=== PATIENT | male | born 1950 | race Caucasian/White ===

== ENCOUNTER 2019-03-02 05:25 | Outpatient (CLI) | payer MEDICARE ==
[2019-03-02 10:51] LABS: #Basophils 0.1 thou/uL (0.0-0.2); #Eosinphils 0.3 thou/uL (0.0-0.7); #Lymphocytes 2.2 thou/uL (1.20-3.40); #Monocytes 1.1 thou/uL (0.11-0.59); #Neutrophils 6.4 thou/uL (1.40-6.50); %Basophils 0.7 % (0.0-1.0); %Eosinophils 3.3 % (0.0-10.0); %Monocytes 11.1 % (0.0-10.0); %Neutrophils 62.9 % (42.0-75.0); Hemoglobin 14.3 g/dL (14.0-18.0); Mean Corpuscular HGB CONC 34.4 g/dL (32.0-36.0); Mean Corpuscular Hemoglobin 32.5 pg (27.0-31.0); Mean Corpuscular Volume 94.6 fL (78.0-98.0); Mean Platelet Volume 7.6 fL (7.4-10.4); Platelet Count 260 thou/uL (130-400); RBC Distribution Width 12.1 % (11.5-14.5); Red Blood Cell (RBC) Count 4.39 mill/uL (4.70-6.10); White Blood Cell (WBC) Count 10.1 thou/uL (4.8-10.8)
[2019-03-02 11:20] LABS: Anion Gap 15 mmol/L (10-20); BUN (Urea Nitrogen) 35 mg/dL (8.4-25.7); Calc. Creatinine Clearance 0 mL/min (70-130); Calcium 9.6 mg/dL (7.8-10.44); Carbon Dioxide 23 mmol/L (23-31); Chloride 101 mmol/L (98-107); Estimated GFR-MDRD 57; Glucose 177 mg/dL (80-115); Potassium 4.8 mmol/L (3.5-5.1); Sodium 134 mmol/L (136-145)
--- NOTE | 2019-03-06 22:41 | EKG ---
Test Reason : Blood Pressure : / mmHG Vent. Rate : 096 BPM Atrial Rate : 096 BPM P-R Int : 192 ms QRS Dur : 076 ms QT Int : 336 ms P-R-T Axes : 068 -17 054 degrees QTc Int : 424 ms Normal sinus rhythm Low voltage QRS Cannot rule out Anteroseptal infarct , age undetermined Abnormal ECG When compared with ECG of 16-NOV-2010 06:51, Minimal criteria for Anteroseptal infarct are now Present Confirmed by Kim LARSON ([id number]) on 03/06/2019 10:41:05 PM Referred By: [email or web address] Confirmed By:Kim LARSON
== END 2019-03-02 05:26 | disposition home or self-care (01) ==
LOC: LABBT 05:25
PROVIDERS: ATTEND Orthopaedic Surgery
DX: Z01.818 Encounter for other preprocedural examination (principal); G56.01 Carpal tunnel syndrome, right upper limb
CPT/HCPCS: 80048; 85025; 93005; 93010

== ENCOUNTER 2019-03-07 06:56 | Day surgery (SDC) | payer MEDICARE ==
[2019-03-02 10:00] VITALS: BMI 34.4
--- NOTE | 2019-03-06 09:05 | HP ---
HISTORY OF PRESENT ILLNESS: The patient is a 68-year-old male with a two-year history of pain and tingling in median nerve distribution of his right hand. He has had no injury. He has had persistent symptoms despite rest, restriction of activities, splinting, and anti-inflammatory medication. He has had two injections of the carpal tunnel by Dr. Redmond, which provided excellent short-term relief, but he has developed recurrent symptoms. He has had a previous left carpal tunnel release in [place] three years ago with good results and his current symptoms are identical. PAST MEDICAL HISTORY: The patient has a history of diabetes, neck and back complaints, and peripheral neuropathy. CURRENT MEDICATIONS: Include, 1. Victoza. 2. Lantus insulin. 3. Jardiance. 4. Pioglitazone. 5. Simvastatin. 6. Fenofibrate. 7. Levothyroxine. 8. Metformin. 9. Glipizide. 10. Low-dose aspirin. 11. Gabapentin. 12. Naproxen. 13. Spironolactone. 14. Ketoralac. ALLERGIES: HE HAS NO KNOWN ALLERGIES. FAMILY HISTORY: Otherwise unremarkable. SOCIAL HISTORY: Otherwise unremarkable. REVIEW OF SYSTEMS: Otherwise unremarkable. PHYSICAL EXAMINATION: GENERAL: This is a healthy male. HEENT: Unremarkable. NECK: Supple. CHEST: Clear. HEART: Regular rate and rhythm. ABDOMEN: Soft, nontender. RECTAL: Deferred. GENITAL: Deferred. EXTREMITIES: Pertinent findings were the right wrist, there is mild thenar atrophy. There is no swelling. There are no open wounds. There is slight thickening of the palmar fascia over the middle and ring fingers, but no significant contractures. There is full range of motion of the wrist and fingers. Motor exam is intact. There is a positive Tinel sign over the median nerve. Negative Phalen test. There is decreased sensation in the median nerve distribution. There is good capillary refill and good pulses. IMPRESSION: 1. Right carpal tunnel syndrome. 2. Diabetes. 3. History of peripheral neuropathy. PLAN: Endoscopic possible open right carpal tunnel release. The nature of the surgery, length of recovery, and potential complications such as infection, loss of motion, incomplete relief, nerve injury, recurrence, need for additional treatment, repeat surgery had been discussed in detail. Job ID: [id number] [facility]
[2019-03-07] MEDS ORDERED: Fentanyl 100 MCG/2 ML VIAL ONE (08:26)
[2019-03-07] MEDS ORDERED: Lidocaine 1% (PF) 30 ML VIAL ONE (08:30)
[2019-03-07] MEDS ORDERED: ceFAZolin Sodium (SDC) 2 GM/100 ML BAG ONE (08:41)
--- NOTE | 2019-03-07 10:30 | OP ---
DATE OF PROCEDURE: 03/07/2019 PREOPERATIVE DIAGNOSIS: Right carpal tunnel syndrome. POSTOPERATIVE DIAGNOSIS: Right carpal tunnel syndrome. PROCEDURE PERFORMED: Right endoscopic carpal tunnel release. ANESTHESIA: General. DESCRIPTION OF PROCEDURE: After satisfactory anesthesia was induced in supine position, the patient was prepped and draped in routine manner. A field block with 1% lidocaine plain was accomplished with 10 mL. The right arm was elevated and exsanguinated with an Esmarch bandage and the tourniquet was inflated to 250 mmHg. A 2-cm transverse incision was made in the proximal wrist flexion crease, carried down through the subcutaneous tissues. Bleeding points were controlled with the Bovie cautery. Using sharp and blunt dissection, a distally based flap of deep forearm fascia was developed and retracted distally. Palmaris longus tendon was retracted radially. The proximal edge of the deep forearm fascia was split under direct visualization with small scissors to make sure there was no proximal impingement of the median nerve. Synovial elevator was introduced. The distal transverse carpal ligament and the synovium cleaned from the under surface. Carpal tunnel dilators were inserted. The [employer] endoscopic carpal tunnel system was introduced beneath the transverse carpal ligament in-line with the ring finger. The distal edge of the ligament was easily identified and divided in a distal to proximal direction by pulling the trigger of the assembly and engaging the knife and withdrawing the scope proximally. This was done in several stages to make sure there was complete division of the transverse carpal ligament, which was documented with video printer. After withdrawing the scope, the carpal tunnel dilator could be inserted into the carpal tunnel and there was markedly improved passage and subcutaneous position of the instrument. The scope was reintroduced into the carpal tunnel. There was wide separation of the 2 leaves of the transverse carpal ligament. The tourniquet was released after 6 minutes. There was no excessive bleeding and the scope was withdrawn. The wound was then thoroughly irrigated and closed with running subcuticular 3-0 nylon. Sterile dressing was applied and the patient immobilized in a Velcro wrist splint. He was awakened, taken to the recovery room in stable condition. There were no apparent intraoperative complications. The estimated blood loss was negligible. The patient will be discharged home in satisfactory condition, instructed on ice and elevation, and given written wound care instructions. He has Tylenol No. 3 at home for pain. He will be rechecked in my office in approximately 2 weeks or sooner if there are any problems prior to that time. Job ID: [id number]
== END 2019-03-07 11:29 | disposition home or self-care (01) ==
LOC: SDC 06:56
PROVIDERS: ATTEND Orthopaedic Surgery
PROC: 01N54ZZ Release Median Nerve, Percutaneous Endoscopic Approach (ICD-10-PCS; principal; 2019-03-07)
DX: G56.01 Carpal tunnel syndrome, right upper limb (principal); E11.40 Type 2 diabetes mellitus with diabetic neuropathy, unspecified; M19.90 Unspecified osteoarthritis, unspecified site; Z79.4 Long term (current) use of insulin; Z79.82 Long term (current) use of aspirin; Z79.899 Other long term (current) drug therapy
CPT/HCPCS: 36416; J0690; J2001; J3010